=== PATIENT | female | born 1995 | race Hispanic/Latino ===

== ENCOUNTER 2018-11-21 20:56 | Emergency (ER) | payer SELFPAY ==
[2018-11-21 21:25] VITALS: O2SAT 100
[2018-11-21] MEDS ORDERED: Sodium Chloride 0.9% 1,000 ML IV ONE (21:44)
[2018-11-21] MEDS ORDERED: Iohexol 240 (50 ml) PO ONE (21:46)
--- NOTE | 2018-11-21 21:48 | C.PDOC ---
History Of Present Illness 23 year old female presents to ED with complaint of abdominal pain that began 2 hours ago. Patient describes the pain as severe and located on the the left side of her abdomen. Patient denies nausea , vomiting, and diarrhea. Chief Complaint (Nursing): Abdominal Pain History Per: Patient History/Exam Limitations: no limitations Onset/Duration Of Symptoms: Hrs (2) Current Symptoms Are (Timing): Still Present Severity: Severe Location Of Pain/Discomfort: Other (left side of abdomen) Quality Of Discomfort: "Pain" Associated Symptoms: denies: Nausea, Vomiting, Diarrhea Past Medical History Reviewed: Historical Data, Nursing Documentation, Vital Signs Vital Signs: Last Vital Signs Temp 98 F 11/21/18 21:17 Pulse 69 11/21/18 21:17 Resp 22 11/21/18 21:17 BP 127/77 11/21/18 21:17 Pulse Ox 100 11/21/18 21:17 - Medical History PMH: No Chronic Diseases Surgical History: No Surg Hx Family History: States: Unknown Family Hx - Social History Hx Alcohol Use: Yes Hx Substance Use: No - Immunization History Hx Tetanus Toxoid Vaccination: No Hx Influenza Vaccination: No Hx Pneumococcal Vaccination: No Review Of Systems Constitutional: Negative for: Fever, Chills, Weakness Gastrointestinal: Positive for: Abdominal Pain (left -sided). Negative for: Nausea, Vomiting, Diarrhea Genitourinary: Negative for: Dysuria, Hematuria Neurological: Negative for: Weakness, Numbness, Dizziness Physical Exam - Physical Exam Appears: Non-toxic Skin: Normal Color, Warm, Dry Head: Atraumatic, Normacephalic Neck: Normal ROM, Supple Chest: Symmetrical, No Deformity Cardiovascular: Rhythm Regular, No Murmur Respiratory: No Accessory Muscle Use Gastrointestinal/Abdominal: Tenderness (bilateral lower quadrant and midline area), No Guarding, Rebound (questionable) Extremity: Bilateral: Atraumatic, Normal Color And Temperature Neurological/Psych: Oriented x3, Normal Speech, Normal Cognition ED Course And Treatment - Laboratory Results Result Diagrams: 11/21/18 21:47 11/21/18 21:47 O2 Sat by Pulse Oximetry: 100 (RA) - CT Scan/US CT ABD/PEL Other Rad Studies (CT/US): Read By Radiologist, Radiology Report Reviewed CT/US Interpretation: CT SCAN OF THE ABDOMEN AND PELVIS WITH CONTRAST. CLINICAL HISTORY: Left lower abdominal pain. TECHNIQUE: Multiple axial and coronal CT images were obtained through the abdomen and pelvis after administration of intravenous contrast material. COMMENTS: Moderate amount of fecal residue is noted in the large bowel. Moderate diffuse thickening of the cecum and ascending colon. Fluid-filled mildly distended terminal ileum. The liver is of uniform attenuation without mass or defect. There is no intra or extrahepatic biliary ductal dilatation. The spleen is normal. The gallbladder is within normal limits. The pancreas is of normal contour and attenuation characteristics. There is no evidence of adrenal mass. Both kidneys demonstrate prompt and equal nephrograms. The kidneys are normal in size, shape and configuration. There is no evidence of renal or ureteral mass. No renal or ureteral calculi are identified. There is no hydroureter or hydronephrosis. No evidence for appendicitis. There is no bowel wall thickening. No evidence for small or large bowel obstruction. There is no evidence of abdominal ascites or lymphadenopathy. There is no evidence of intrinsic or extrinsic bladder mass. There is no pelvic ascites or lymphadenopathy. Unremarkable intrauterine device. Images of the lung bases show no evidence of pleural or parenchymal mass. There are no pleural effusions. The bony structures are free of lytic or blastic lesions. IMPRESSION: Moderate amount of fecal residue is noted in the large bowel. Moderate diffuse thickening of the cecum and ascending colon. Uncomplicated colitis. Fluid-filled mildly distended terminal ileum. Probably secondary to focal ileus/constipation. No bowel perforation or pneumatosis intestinalis. Thank you for your kind referral of this patient. Progress Note: Abdomen/Pelvis CT ordered for patient. Labs ordered with U-preg and UA. Patient given Morphine IVP and IV fluids. Disposition Counseled Patient/Family Regarding: Diagnosis - Disposition Referrals: [facility] [Outside] Disposition: HOME/ ROUTINE Disposition Time: : Condition: STABLE Prescriptions: Dicyclomine [Bentyl] 10 mg PO TID #20 cap Instructions: Colitis Forms: [facility] (Ukrainian) - POA Present On Arrival: None - Clinical Impression Clinical Impression: Abdominal pain, Colitis - Scribe Statement The provider has reviewed the documentation as recorded by the Scribe (Mora Simons) All medical record entries made by the Scribe were at my direction and personally dictated by me. I have reviewed the chart and agree that the record accurately reflects my personal performance of the history, physical exam, medical decision making, and the department course for this patient. I have also personally directed, reviewed, and agree with the discharge instructions and disposition.
[2018-11-21 21:51] LABS: BASO # 0.1 K/uL (0.0-0.2); BASO % 0.7 % (0.0-2.0); EOS # 0.2 K/uL (0.0-0.7); EOS % 2.6 % (0.0-4.0); HEMOGLOBIN 13.8 g/dL (11.0-16.0); LYMPH # 2.4 K/uL (1.0-4.3); MEAN CELL VOLUME 93.7 fL (81.0-99.0); MEAN CORPUSCULAR HEMOGLOBIN 31.5 pg (27.0-31.0); MEAN CORPUSCULAR HGB CONC 33.6 g/dL (33.0-37.0); MEAN PLATELET VOLUME 7.8 fL (7.2-11.7); MONO # 0.5 K/uL (0.0-0.8); MONO % 6.4 % (0.0-10.0); NEUT % 61.3 % (50.0-75.0); NRBC % 0.1 % (0.0-2.0); RBC 4.39 Mil/uL (3.80-5.20); RED CELL DISTRIBUTION WIDTH 13.3 % (11.5-14.5); WHITE BLOOD COUNT 8.1 K/uL (4.8-10.8)
[2018-11-21 22:02] LABS: ALB/GLOB RATIO 1.6 (1.0-2.1); ALBUMIN 5.1 g/dL (3.5-5.0); ALT/SGPT 36 U/L (9-52); AST/SGOT 42 U/L (14-36); BLOOD UREA NITROGEN 12 mg/dL (7-17); GFR NON-AFRICAN AMERICAN > 60; LIPASE 78 U/L (23-300)
[2018-11-21] MEDS ORDERED: Iohexol 240 (50 ml) ONE (22:04)
[2018-11-21 22:12] LABS: SQUAMOUS EPITHIAL 15 /hpf (0-5); URINE BILIRUBIN NEGATIVE (NEGATIVE); URINE BLOOD NEGATIVE (NEGATIVE); URINE CLARITY Hazy (Clear); URINE COLOR Yellow (YELLOW); URINE GLUCOSE (UA) NORMAL (Normal); URINE LEUKOCYTE ESTERASE NEG Leu/uL (Negative); URINE PROTEIN NEGATIVE (NEGATIVE); URINE UROBILINOGEN NORMAL mg/dL (0.2-1.0)
[2018-11-21] MEDS ORDERED: Iodixanol 320 MG/ML 100 ML BOTTLE IV ONE (22:12)
[2018-11-21 22:13] LABS: HCG,QUALITATIVE URINE NEGATIVE (NEGATIVE)
[2018-11-22 00:59] VITALS: BP 97/59; PULSE 59; RESP 18; TEMP 98.4
--- NOTE | 2018-11-22 12:38 | CT ---
Date of service: 11/22/2018 PROCEDURE: CT Abdomen and Pelvis with contrast HISTORY: abd pain/rebound ? COMPARISON: None. TECHNIQUE: Contrast dose: Radiation dose: Total exam DLP = 210.5 mGy-cm. This CT exam was performed using one or more of the following dose reduction techniques: Automated exposure control, adjustment of the mA and/or kV according to patient size, and/or use of iterative reconstruction technique. FINDINGS: LOWER THORAX: Unremarkable. LIVER: Unremarkable. No gross lesion or ductal dilatation. GALLBLADDER AND BILE DUCTS: Unremarkable. PANCREAS: Unremarkable. No gross lesion or ductal dilatation. SPLEEN: Unremarkable. ADRENALS: Unremarkable. No mass. KIDNEYS AND URETERS: Unremarkable. No hydronephrosis. No solid mass. VASCULATURE: Unremarkable. No aortic aneurysm. No aortic atherosclerotic calcification or mural plaque present. BOWEL: Unremarkable. No obstruction. No gross mural thickening. APPENDIX: Normal appendix. PERITONEUM: Unremarkable. No free fluid. No free air. LYMPH NODES: Unremarkable. No enlarged lymph nodes. BLADDER: Unremarkable. REPRODUCTIVE: Unremarkable. BONES: No acute fracture. OTHER FINDINGS: Intrauterine device in place. IMPRESSION: Unremarkable contrast enhanced CT of the abdomen and pelvis.
== END 2018-11-22 01:31 | disposition home or self-care (01) ==
LOC: C.ER 20:56
DX: K52.9 Noninfective gastroenteritis and colitis, unspecified (principal)
CPT/HCPCS: 74177; 80053; 81001; 83690; 84703; 85025; 96374; 99285; J2270; J7030; Q9966; Q9967